=== PATIENT | male | born 1960 | race American Indian/Alaskan Native ===

== ENCOUNTER → 2025-03-14 13:51 | Outpatient (CLI) | payer OTHER, SELFPAY ==
--- NOTE | 2025-03-14 13:54 | DI.ECHO.S_ITS ---
[facility] : : [id number] : : [place] : : [id number] : : Phone: [phone] Echocardiogram Report + + :Name: EULA AVERY Study Date: 03/14/2025 Height: 71 in : :[facility] ReadingLocation: Weight: 221 lb : : Gender: Male BSA: 2.2 m2 : :: 1960 Age: 64 yrs BP: 125/77 mmHg: :Reason For Study: CARDIOMYOPATHY : :Ordering Physician: VIKASH, : :STEWART Performed By: Garima Reyes : :Referring: STEWART HERNANDEZ : + + Interpretation Summary 1) Normal left ventricular size and thickness with mildly and moderately reduced systolic function (EF 40-45%). 2) Mildly enlarged right ventricle with normal function. 3) No significant valvular abnormalities. 4) Compared to the Echo done 04/19/2023, LVEF has improved from 35-40% to 40- 45% on this study. Procedure: A two-dimensional transthoracic echocardiogram with color flow and Doppler was performed. The study quality was technically adequate. Comparison is made with the echocardiogram of 04/19/2023. The patient had frequent PVCs during the exam. The patient was in sinus bradycardia with heart rates between 54-73 bpm during the exam. Left Ventricle: The left ventricle is normal in size and wall thickness. The ejection fraction is estimated to be 40-45%. There is mild to moderate global hypokinesis of the left ventricle. Grade I diastolic dysfunction with normal left atrial pressure. Right Ventricle: The right ventricle is normal in size and function. Atria: The left atrial size is normal. Right atrial size is normal. There is no Doppler evidence for an interatrial shunt. Mitral Valve: The mitral valve leaflets appear to open well. There is trace mitral regurgitation. Aortic Valve: The aortic valve is trileaflet. The aortic valve opens well. There is no aortic valve stenosis. There is trace aortic regurgitation. Tricuspid Valve: The tricuspid valve leaflets are thin and pliable. There is mild tricuspid regurgitation. Pulmonary artery pressures cannot be estimated because of the lack of a measurable TR jet velocity but the IVC suggests a CVP of around 3 mmHg. Pulmonic Valve: The pulmonic valve leaflets are thin and pliable; valve motion is normal. There is a trace or physiologic amount of pulmonic regurgitation. Great Vessels: The aortic root is mildly dilated. The dimensions of the ascending aorta are normal. The IVC is of normal diameter and collapses greater than 50% with a sniff. This suggests a low right atrial pressure of 3 mm Hg. Pericardium/ Pleura There is no pericardial effusion. There is no pleural effusion. MMode/2D Measurements & Calculations LVIDd: 5.6 cm LVOT diam: 2.5 cm LVIDs: 4.6 cm Ao root diam: 3.9 cm FS: 19.3 % asc Aorta Diam: 3.7 cm IVSd: 0.80 cm Ao Arch Diam (Prox Trans): 2.6 cm LVPWd: 0.74 cm LV zazueta. diameter/BSA (cm/m^2): 2.6 LV sys. diameter/BSA (cm/m^2): 2.1 LA A2 area: 20.1 cm2 RA long axis: 4.0 cm LA A4 area: 15.0 cm2 RA area: 15.1 cm2 LA length (vol): 5.0 cm RA vol: 48.2 ml LA vol: 51.4 ml RA : 21.9 ml/m2 LA vol index: 23.3 ml/m2 IVC diam: 1.8 cm RVD1 (basal): 3.9 cm RVD2 (mid): 3.4 cm TAPSE: 2.3 cm Doppler Measurements & Calculations Ao V2 max: 120.0 cm/sec LVOT Max Mike: 66.7 cm/sec Ao V2 mean: 82.3 cm/sec LV V1 max P.8 mmHg Ao max P.8 mmHg LV V1 VTI: 15.6 cm Ao mean P.1 mmHg GAL(I,D): 2.9 cm2 Ao V2 VTI: 25.2 cm GAL(V,D): 2.6 cm2 sev ratio: 0.62 GAL indexed to BSA (cm^2/m^2): 1.3 MV E max mike: 51.9 cm/sec PA V2 max: 79.9 cm/sec MV A max mike: 100.0 cm/sec PA V2 mean: 56.3 cm/sec MV E/A: 0.52 PA mean P.4 mmHg Med Peak E' Mike: 4.7 cm/sec PA pr(Accel): 20.6 mmHg E/E' med: 11.2 Lat Peak E' Mike: 8.8 cm/sec E/E' lat: 5.9 E/e' average: 8.5 MV dec time: 0.29 sec SV(LVOT): 74.0 ml Reading Physician:05:10 PM
== END ==
PROVIDERS: Referring Provider Internal Medicine Cardiovascular Disease; Visit Provider Internal Medicine Cardiovascular Disease
DX: I07.1 Rheumatic tricuspid insufficiency (principal); I42.9 Cardiomyopathy, unspecified; I77.810 Thoracic aortic ectasia
CPT/HCPCS: 93306